=== PATIENT | female | born 1965 | race Two or more races ===

== ENCOUNTER 2016-09-03 10:56 | Observation (INO) | payer BC ==
[2016-08-29 21:35] LABS: BASOPHILS 0.3 %; BASOPHILS ABSOLUTE 0.02 10/3/uL (0.0-0.16); EOSINOPHILS 1.3 %; EOSINOPHILS ABSOLUTE 0.09 10/3/uL (0.0-0.53); HEMATOCRIT 35.9 % (36.0-48.0); HEMOGLOBIN 11.1 g/dL (12.0-16.0); IMMATURE GRANULOCYTES 0.3 %; IMMATURE GRANULOCYTES ABSOLUTE 0.02 10/3/uL (0.0-0.11); LYMPHOCYTES 29.3 %; LYMPHOCYTES ABSOLUTE 2.08 10/3/uL (0.67-4.30); MEAN CORPUS HGB CONC 30.9 g/dL (32.0-36.0); MEAN CORPUSCULAR HEMOGLOB 22.9 pg (26.0-34.0); MEAN PLATELET VOLUME 11.1 fL (9.2-13.0); MONOCYTES 11.1 %; MONOCYTES ABSOLUTE 0.79 10/3/uL (0.21-1.20); NEUTROPHILS 57.7 %; PLATELET COUNT 281 10/3/uL (150-400); RBC DISTRIBUTION WIDTH 17.7 % (12.0-16.0); RED CELL COUNT 4.85 10/6/uL (4.0-5.6); WHITE BLOOD CELLS 7.1 10/3/uL (4.5-10.5)
[2016-08-29 21:36] LABS: MANUAL DIFF NO %
[2016-08-29 21:46] LABS: ANISOCYTOSIS 1+ (5-10/OIF) (0-5/OIF); HYPOCHROMIA 1+ (3-10/OIF) (0-2/OIF); MICROCYTES 1+ (5-10/OIF) (0-5/OIF); PLATELET ESTIMATE ADQ (ADEQUATE)
--- NOTE | ~2016-09-03 | OP ---
Record Of Operation [facility] [address] [place]. [address] NAME: DEXTER PELLETIER : 69 STATUS : ADM IN PAT#: [id number] AGE: 51 ADM/REG DATE : 09/03/16 MR#: [id number] REPORT SERV DATE: 09/04/16 DICTATED BY: JUAN ANTONIO ORDONEZ DATE: 09/03/16 REPORT STATUS : Draft TRANSCRIBED BY: MODL DATE: 09/03/16 DATE OF PROCEDURE: 09/03/2016 OPERATIVE PROCEDURE: Robotic total laparoscopic hysterectomy, bilateral salpingectomy, excision of an anal skin tag. PREOPERATIVE DIAGNOSES: 1. Excessive and frequent menstruation. 2. Uterine fibroids. 3. Uterine hypertrophy. 4. Symptomatic anal skin tag. POSTOPERATIVE DIAGNOSES: 1. Excessive and frequent menstruation. 2. Uterine fibroids. 3. Uterine hypertrophy. 4. Symptomatic anal skin tag. SURGEON: Juan Antonio Ordonez MD. ANESTHESIA: General. FINDINGS: The uterus was enlarged to approximately 10-week size, the fallopian tube showed evidence of previous tubal ligation, but otherwise normal. The ovaries were normal bilaterally with small corpus luteum on the left ovary, there was no evidence of endometriosis. At the time of first visualization of the pelvis, I noted some adhesions from the omentum to the area of the previous tubal ligation on the left side, which were easily lysed at the time of surgery. On examination of the anus, there was a small skin tag that created a small flap effect on the anal opening resulting in difficulty with hygiene, but there were no other abnormalities. DESCRIPTION OF PROCEDURE: The patient was placed on the operating table in the supine position. After satisfactory general anesthesia, the patient was placed in the lithotomy in the [employer] [place] [employer]. The patient was prepped and draped in the usual fashion for robotic surgery. I placed a ELLIOT device on the cervix and sutured it in place at the 10 o'clock and 12 o'clock position with 0 Vicryl. In doing so, the cervix was dilated to 8 mm and the uterus sounded to 10 cm. An 8 cm long intrauterine balloon catheter was used and a medium size ELLIOT ring was chosen. After placement of the ELLIOT uterine manipulator, I placed a Garzon catheter in bladder. I then put on new sterile gloves and went to the bedside. My cardiovascular surgical tech by this time had established a 12 mm trocar site, about 10 cm above the level of the umbilicus in midline and an adequate pneumoperitoneum. I inserted the robotic camera through the 12 mm trocar site, and then under direct visualization, I placed a robotic arm 8 mm trocars, about 10 cm to the left and right of the midline and about 8 cm lower than the camera trocar. Once these were in place, an chef's assistant port was placed in the left upper quadrant with the 8 mm trocar. Pelvis was visualized and a decision was made not to use a third robotic arm as the case did not appear to be a complex Record Of Operation [facility] [address] [place]. [address] NAME: DEXTER PELLETIER : 69 STATUS : ADM IN PAT#: [id number] AGE: 51 ADM/REG DATE : 09/03/16 MR#: [id number] REPORT SERV DATE: 09/04/16 DICTATED BY: JUAN ANTONIO ORDONEZ DATE: 09/03/16 REPORT STATUS : Draft TRANSCRIBED BY: KEM DATE: 09/03/16 one. At this time, the patient was positioned properly in Trendelenburg and the robot was docked. I then removed my gown and gloves and went to the robotic console. Unipolar ambreen were placed in robotic arm #1 and a PK device was placed in robot arm #2. At this time, I visualized the adhesions from the omentum to the left adnexal area which were desiccated and lysed easily. Following this, a full visualization of the pelvis was undertaken and the course of the ureters seen bilaterally. The uterus was then position to expose the left adnexa. Using the PK devise, the mesosalpinx was desiccated and then divided with the unipolar ambreen, so that I could remove the left fallopian tube with the specimen and leave both left and right ovary. Following vision of the mesosalpinx, a defect was made in the peritoneum between the round ligament in the uteroovarian ligament pedicle. The uteroovarian pedicle was triply desiccated with the PK device and then divided with unipolar ambreen. The round ligament on the left was then desiccated the PK device and divided with unipolar ambreen, and the anterior leaf of the peritoneum was incised with unipolar ambreen down to the level of midline over the cervix. The posterior leaf of the broad ligament was then incised down to the upper cervix, and the avascular portion of the round ligament was incised with unipolar ambreen and the uterine artery pedicle was skeletonized. In a like manner, I turned to the right side and again visualizing the course of the ureter and made a decision to remove the fallopian tube and leave the normal ovary. The exact same maneuvers were repeated on the right as on the left and everything proceeded uneventfully without complications. The bladder was now advanced using sharp dissection of the cervix and of the upper vagina. The position of the ureters were identified again. Following this, the uterine artery pedicles were triply desiccated with PK device and then divided with unipolar ambreen. The cardinal ligament complex was then desiccated with the PK device and divided with unipolar ambreen in several steps until we reached the level of the ELLITO ring laterally. At this point, I was able to palpate the ELLIOT ring anteriorly and laterally. I inspected the bladder making sure we advanced the bladder off the upper vagina. At this point, incised with the unipolar ambreen anteriorly over the ELLIOT ring and entered the vagina. I extended this incision as far laterally as possible, then turned to posteriorly incising down on the ELLIOT ring and then connecting it laterally to the anterior incisions. The uterus with the fallopian tubes was free of all attachments and was removed through the vagina without difficulty. The vaginal cuff was inspected. The instruments in the #1 and 2 ports were replaced with needle drivers. The vagina was then closed from left to right with running 2-0 PDS V-Loc sutures. After reaching the right vaginal corner, I then went back toward the midline with two passes after which we cut the suture and removed the needle with the suture from the abdominal cavity. I then irrigated thoroughly with saline inspecting all the vascular pedicles. Hemostasis was found to be excellent. The procedure was then complete robotically, I went to rescrub, gown and glove. Meanwhile, the instruments were removed from the abdominal cavity and the robot was undocked and all the gases allowed to escaped. I then went to the bedside after gowning, gloving, and removed the trocar sleeves. The fascia at the 12 mm trocar was closed with interrupted 0 Vicryl. The skin incisions were all closed with interrupted subcuticular 4-0 Monocryl, after which Steri-Strips, Telfa, and Tegaderm were applied. The patient was positioned so as to expose the anal area and the skin tag that created the flap effect was identified and excised with Metzenbaum scissors after which the area was sutured with the running 4-0 Monocryl to close the defect. Hemostasis was excellent here. The patient was then retuned to the supine position. The sponge and needle counts were correct. The estimated blood loss was only 100 mL. There was 250 mL of clear urine in the catheter. The patient was Record Of [address] [address] NAME: DEXTER PELLETIER : 69 STATUS : ADM IN [facility]#: [id number] AGE: 51 ADM/REG DATE : 09/03/16 MR#: [id number] REPORT SERV DATE: 09/04/16 DICTATED BY: JUAN ANTONIO ORDONEZ DATE: 09/03/16 REPORT STATUS : Draft TRANSCRIBED BY: KEM DATE: 09/03/16 awakened from general anesthesia and transferred to the recovery room in good condition. THAO/CASEL Juan Antonio Ordonez MD / [id number] CC: Juan Antonio Ordonez MD
[~2016-09-03 10:56] MED LIST: VITC500 PO
[2016-09-04 03:49] LABS: HEMATOCRIT 31.8 % (36.0-48.0)
[2016-09-04] MEDS ORDERED: NORCO1 TA1 PO (17:39)
[2016-09-04] MEDS ORDERED: ANADS PO (17:39)
== END 2016-09-04 19:51 | disposition home or self-care (01) ==
LOC: SDC/OF 10:56 → 4EA 16:02
PROVIDERS: Obstetrics & Gynecology
PROC: 0UT74ZZ Resection of Bilateral Fallopian Tubes, Percutaneous Endoscopic Approach (ICD-10-PCS; 2016-09-03)
PROC: 0HB8XZZ Excision of Buttock Skin, External Approach (ICD-10-PCS; 2016-09-03)
PROC: 8E0W4CZ Robotic Assisted Procedure of Trunk Region, Percutaneous Endoscopic Approach (ICD-10-PCS; 2016-09-03)
PROC: 0UT94ZZ Resection of Uterus, Percutaneous Endoscopic Approach (ICD-10-PCS; principal; 2016-09-03 11:30)
PROC: 0UTC4ZZ Resection of Cervix, Percutaneous Endoscopic Approach (ICD-10-PCS; 2016-09-03 11:30)
DX: D25.9 Leiomyoma of uterus, unspecified (principal); N85.2 Hypertrophy of uterus; N92.0 Excessive and frequent menstruation with regular cycle
CPT/HCPCS: 36415; 84703; 85014; 85018; 85025; 86850; 86900; 86901; 88307; 96374; A9270-GY; G0378; J0694; J1885; J2175; J2250; J2270; J2405; J2710; J3010